=== PATIENT | male | born 1950 ===

== ENCOUNTER 2016-10-06 07:10 | Day surgery (SDC) | payer MEDICARE, BC ==
[2016-06-07 11:30] VITALS: BMI 28.0
[2016-10-06 08:14] VITALS: TEMP 98
[2016-10-06] MEDS ORDERED: Propofol 10 mg/ml Inj (20 ML) ONE (09:06)
[2016-10-06] MEDS ORDERED: Lactated Ringer's 500 ML IV ONE (09:10)
--- NOTE | 2016-10-06 09:10 | CP.SDSHP ---
Same Day Surgery H & P - History Proposed Procedure: EGD, colonoscopy Pre-Op Diagnosis: abdominal pain, diarrhea - Previous Medical/Surgical History Cardiac: Hypertension, ASHD/CAD Endocrine/Metabolic: Diabetes Comments: ESRD on HD - Allergies Allergies: Allergies No Known Allergies Allergy (Verified 03/12/14 10:50) - Physical Exam General Appearance: NAD Vital Signs: Vital Signs 10/06/16 07:59 Temperature 98 F Pulse Rate 80 Respiratory 19 Rate Blood Pressure 139/58 L O2 Sat by Pulse 99 Oximetry Mental Status: Alert & Oriented x3 Neuro: WNL Heart: WNL Lungs: WNL GI: WNL - {Optional Preform as Required} Abdomen: WNL - Impression Pt. Evaluated Today:Candidate for Anesthesia & Procedure: Yes - Date & Time Date: 10/06/16 Time: 09:10 Short Stay Discharge - Short Stay Discharge Admitting Diagnosis/Reason for Visit: DIARRHEA, UNSPECIFIED,UNSPECIFIED ABDOMINAL PAIN Disposition: HOME/ ROUTINE
[2016-10-06 10:09] VITALS: O2SAT 100
[2016-10-06 13:41] VITALS: BP 140/56; PULSE 92; RESP 14
== END 2016-10-06 11:40 | disposition home or self-care (01) ==
LOC: C.ENDO 07:10
PROVIDERS: ATTEND Internal Medicine Gastroenterology
DX: K57.30 Diverticulosis of large intestine without perforation or abscess without bleeding (principal); R19.7 Diarrhea, unspecified; K29.50 Unspecified chronic gastritis without bleeding; K64.1 Second degree hemorrhoids; K44.9 Diaphragmatic hernia without obstruction or gangrene; R10.13 Epigastric pain; I12.0 Hypertensive chronic kidney disease with stage 5 chronic kidney disease or end stage renal disease; E11.22 Type 2 diabetes mellitus with diabetic chronic kidney disease; N18.6 End stage renal disease; Z99.2 Dependence on renal dialysis
CPT/HCPCS: 43239; 45380; 82948; 88305; J2704; J3010; J7120